=== PATIENT | female | born 1965 | race Two or more races ===

== ENCOUNTER 2020-01-17 13:22 | Emergency (ER) | payer MEDICAID ==
[~2020-01-17] VITALS: Ht 134.6 cm; Wt 70.4 kg
--- NOTE | 2020-01-17 14:54 | NUR ---
interpretor at bedside, erp provider at bedside
--- NOTE | 2020-01-17 15:01 | NUR ---
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
[2020-01-17] MEDS ORDERED: IBUPROFEN 200 MG TABLET ONE (15:23)
[2020-01-17] MEDS ORDERED: ACETAMINOPHEN 500 MG TABLET ONE (15:23)
[2020-01-17] MEDS ORDERED: ACETAMINOPHEN 500 MG TABLET PO ONE (15:30)
[2020-01-17] MEDS ORDERED: IBUPROFEN 800 MG TABLET PO ONE (15:30)
[2020-01-17 16:15] VITALS: BP 110/66
--- NOTE | 2020-01-17 16:19 | NUR ---
[id number] used for d/c instructins, pt had no questions
--- NOTE | 2020-01-17 16:40 | NUR ---
erp at bedside, updated on poc, pt in bed, no signs of distress.
== END 2020-01-17 16:41 | disposition home or self-care (01) ==
LOC: ED 15:14
DX: J20.8 Acute bronchitis due to other specified organisms (principal); M94.0 Chondrocostal junction syndrome [Tietze]
CPT/HCPCS: 71045; 93005; 99283